=== PATIENT | male | born 1995 | race Caucasian/White ===

== ENCOUNTER 2021-03-16 13:11 | Observation (INO) ==
[2021-03-16] MEDS ORDERED: Piperacillin/Tazobac ADVAN 3.375 GM in NS 0.9% 100 ml BAG 100 ML IV ONE (14:06)
[2021-03-16] MEDS ORDERED: Ondansetron 4 mg VIAL 2 MG/ML 2 ml VIAL IV PRN (14:07)
[2021-03-16] MEDS ORDERED: HYDROmorphone 0.5 MG/0.5 ML SYRINGE IV SLOW PU PRN (14:08)
[2021-03-16] MEDS ORDERED: Lactated Ringers 1000 ml BAG 1,000 ML IV SCH (15:00)
[2021-03-16] MEDS ORDERED: Zosyn per Pharmacy NOTE FOLLOW UP SCH (15:00)
[2021-03-16] MEDS: ZOSYN 3.375 GM Q8H per EXTENDED INFUSION IV SCH (23:03)
[2021-03-17] MEDS: ZOSYN 3.375 GM Q8H per EXTENDED INFUSION IV SCH (05:42)
[2021-03-17] MEDS ORDERED: Bupivacaine 0.25% EPI 200,000 30 ML SDV ONE (08:17)
[2021-03-17] MEDS ORDERED: Midazolam 2 mg/2 ml VIAL 1 mg/ml 2 ml VIAL (2 mg) ONE (08:26)
[2021-03-17] MEDS ORDERED: fentaNYL 250 mcg/5 ml 50 MCG/ML 5 ml VIAL (250 MCG) ONE (08:26)
[2021-03-17] MEDS ORDERED: Lidocaine 2% PF 5 ML VIAL ONE (08:27)
[2021-03-17] MEDS ORDERED: Propofol 10 MG/ML 20 ML BTL ONE (08:27)
[2021-03-17] MEDS ORDERED: Rocuronium 50 mg VIAL 10 mg/ml 5 ml VIAL (50 mg) ONE (08:27)
[2021-03-17 08:41] VITALS: BP 136/84
[2021-03-17] MEDS ORDERED: Ondansetron 4 mg VIAL 2 MG/ML 2 ml VIAL ONE (08:52)
[2021-03-17] MEDS ORDERED: Dexamethasone IV 4 MG/ML VIAL 1 ml VIAL ONE (08:52)
[2021-03-17] MEDS ORDERED: Prochlorperazine 5 mg/ml 2 ml VIAL (10 mg) IV PRN (09:17)
[2021-03-17] MEDS ORDERED: HYDROmorphone 1 MG/1 ML SYRINGE IV PRN (09:17)
[2021-03-17] MEDS ORDERED: Naloxone 0.4 mg VIAL 0.4 mg/ml 1 ml VIAL IV PRN (09:17)
[2021-03-17] MEDS ORDERED: HYDROmorphone 1 MG/1 ML SYRINGE ONE (09:25)
[2021-03-17] MEDS ORDERED: Prochlorperazine 5 mg/ml 2 ml VIAL (10 mg) ONE (09:43)
== END 2021-03-17 10:25 | disposition home or self-care (01) ==
LOC: SSU 13:11 → ED 13:11 → SSU 22:20
PROVIDERS: ADMIT Surgery; ATTEND Surgery